=== PATIENT | male | born 1985 | race Caucasian/White ===

== ENCOUNTER 2019-05-25 23:14 | Emergency (ER) | payer BC ==
[2019-05-25 23:19] VITALS: TEMP 98.4; BMI 35.9
--- NOTE | 2019-05-25 23:38 | PDOC ---
*Physical Exam - Vital Signs Last Vital Signs Temp Pulse Resp BP Pulse Ox 98.4 F 77 16 122/77 100 05/25/19 23:16 05/25/19 23:16 05/25/19 23:16 05/25/19 23:16 05/25/19 23:16 Medical Decision Making - Medical Decision Making 05/25/19 23:38 Patient seen by the advanced practice provider under my direct supervision. Ancillary testing reviewed as necessary. I agree with plan as outlined by the advanced practice provider. *DC/Admit/Observation/Transfer - Referrals Referrals: Devang Fernandez [Primary Care Provider] - - Patient Instructions - Post Discharge Activity
[2019-05-26] MEDS ORDERED: DEXAMETHASONE LIQUID 0.5 MG/5 ML 240 ML BULK BOTTLE PO ONE (00:13)
[2019-05-26] MEDS ORDERED: KETOROLAC TROMETHAMINE 30 MG/1 ML VIAL IM ONE (00:13)
--- NOTE | 2019-05-26 00:18 | PDOC ---
History of Present Illness - General Chief Complaint: Cold Symptoms Stated Complaint: pressure in head Time Seen by Provider: 05/25/19 23:35 History Source: Patient Exam Limitations: No Limitations - History of Present Illness Initial Comments: 05/26/19 00:11 HISTORY OF PRESENT ILLNESS: 34-year-old male with medical history of migraines who presents to the emergency department for evaluation of holocranial headache. Patient has had multiple evaluations at [facility] to cares this week was found to have streptococcal pharyngitis as well as walking pneumonia. Patient states his headache is different from his usual migraine as his migraines are usually unilateral. Patient took Tylenol 1 g approximately 8:00 this evening with minimal relief of headache. Patient does report having intermittent lightheadedness which worsens with change of position. Patient is experiencing some mild nausea. Patient is currently being treated with azithromycin. Patient denies diplopia, blurry vision, vomiting, hearing loss or paresthesias. No recent travel or sick contacts. PAST MEDICAL HISTORY: see HPI SURGICAL HISTORY: Denies ALLERGIES: Augmentin REVIEW OF SYSTEMS General/Constitutional: Denies fever or chills. Denies weakness, weight change. HEENT: Denies change in vision. Denies ear pain or discharge. Denies sore throat. Cardiovascular: Denies chest pain or shortness of breath. Respiratory: Denies cough, wheezing, or hemoptysis. Gastrointestinal: Denies nausea, vomiting, diarrhea or constipation. Denies rectal bleeding. Genitourinary: Denies dysuria, frequency, or change in urination. Musculoskeletal: Denies joint or muscle swelling or pain. Denies neck or back pain. Skin and breasts: Denies rash or easy bruising. Neurologic:see HPI Psychiatric: Denies depression or anxiety. Endocrine: Denies increased thirst. Denies abnormal weight change. Hematologic/Lymphatic: Denies anemia, easy bleeding, or history of blood clots. Allergic/Immunologic: Denies hives or skin allergy. Denies latex allergy. PHYSICAL EXAM General Appearance: Well-appearing, appropriately dressed. No apparent distress , no intoxication. HEENT: EOMI, PERRLA, normal voice, TMs normal. Oropharynx erythematous with exudates present. No conjunctival pallor. No photophobia, scleral icterus. Neck: Supple. Trachea midline. No tenderness, rigidity, carotid bruit, stridor , lymphadenopathy, or thyromegaly. Respiratory/Chest: Lungs CTAB. No shortness of breath, chest tenderness, respiratory distress, accessory muscle use. No crackles, rales, rhonchi, stridor , wheezing, dullness Cardiovascular: RRR. S1, S2. No JVD, murmur, bradycardia, tachycardia. Integumentary: Appropriate color, dry, warm. No cyanosis, erythema, jaundice or rash Neurologic: lumber yard worker II-XII intact. Fully oriented, alert. Appropriate mood/affect. Motor strength 5/5. No appreciable EOM palsy, facial droop or sensory deficit. 05/26/19 00:13 05/26/19 01:28 05/26/19 01:34 Past History - Past Medical History Allergies/Adverse Reactions: Allergies Allergy/AdvReac Type Severity Reaction Status Date / Time amoxicillin [From Augmentin] Allergy Verified 05/25/19 23:19 clavulanic acid Allergy Verified 05/25/19 23:19 [From Augmentin] COPD: No - Suicide/Smoking/Psychosocial Hx Smoking History: Unknown if ever smoked Have you smoked in the past 12 months: No Information on smoking cessation initiated: No Hx Alcohol Use: No Drug/Substance Use Hx: No *Physical Exam - Vital Signs Last Vital Signs Temp Pulse Resp BP Pulse Ox 98.4 F 77 16 122/77 100 05/25/19 23:16 05/25/19 23:16 05/25/19 23:16 05/25/19 23:16 05/25/19 23:16 Medical Decision Making - Medical Decision Making 05/26/19 00:18 A/P: 34-year-old male with headache Toradol 30 mg IM now Decadron 10 mg orally now Reassess 05/26/19 01:25 Upon reevaluation, patient states he has not had coffee in the past 2 days. Symptoms are likely result of caffeine withdrawal. Patient reports improvement in his symptoms and is requesting discharge. Strict return precautions have been provided. Neurologic findings notable to spouse have been related to the spouse. Both the patient and his spouse have verbalized understanding of discharge instructions and need to return. 05/26/19 01:34 *DC/Admit/Observation/Transfer Diagnosis at time of Disposition: Headache Qualifiers: Headache type: unspecified Headache chronicity pattern: acute headache Intractability: not intractable Qualified Code(s): R51 - Headache - Discharge Dispostion Disposition: HOME Condition at time of disposition: Fair Decision to Admit order: No - Referrals Referrals: Devang Fernandez [Primary Care Provider] - - Patient Instructions Additional Instructions: Continue antibiotics as previously prescribed. After you brush your teeth tomorrow, throat away your toothbrush and began using a new toothbrush tomorrow night. Keep well-hydrated. You may take Tylenol and Motrin a headaches. This seems to take these medicines at the same time. Return to the emergency department for worsening headache, blurry vision, numbness or tingling to any part of your body, change in behavior, change in personality, slurred speech or for any other concern. Thank you very much for choosing us to provide your emergent health care needs. - Post Discharge Activity
[2019-05-26] MEDS ORDERED: DEXAMETHASONE SOD PHOSPHATE 10 MG/1 ML VIAL ONE (00:32)
[2019-05-26] MEDS ORDERED: KETOROLAC TROMETHAMINE 30 MG/1 ML VIAL ONE (00:33)
[2019-05-26 01:56] VITALS: BP 129/69; PULSE 74
== END 2019-05-26 01:57 | disposition home or self-care (01) ==
LOC: JER 23:14
PROC: 3E0233Z Introduction of Anti-inflammatory into Muscle, Percutaneous Approach (ICD-10-PCS; principal; 2019-05-25)
DX: R51 Headache (principal)
CPT/HCPCS: 99283-25